=== PATIENT | male | born 1995 | race Caucasian/White ===

== ENCOUNTER 2016-06-13 17:09 | Emergency (ER) | payer BC, MEDICAID ==
[2016-06-13] MEDS ORDERED: Proparacaine 0.5% Ophth Soln 15 ML Bottle EYERT ONE (17:23)
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
[2016-06-13 18:00] VITALS: BP 130/90
== END 2016-06-13 17:58 | disposition home or self-care (01) ==
LOC: MW.ED 17:09
DX: S05.01XA Injury of conjunctiva and corneal abrasion without foreign body, right eye, initial encounter (principal); X58.XXXA Exposure to other specified factors, initial encounter; F41.9 Anxiety disorder, unspecified; F17.210 Nicotine dependence, cigarettes, uncomplicated; Z79.899 Other long term (current) drug therapy
CPT/HCPCS: 99283